=== PATIENT | female | born 1985 ===

== ENCOUNTER 2023-02-03 18:42 | Inpatient (IN) | payer OTHER, SELFPAY ==
[2023-02-03 19:05] VITALS: BP 135/58; PULSE 98; TEMP 35.7
[2023-02-03 19:19] VITALS: BMI 32.7
[2023-02-03] MEDS: Gabapentin 400 MG CAPSULE 800 MG PO (19:39)
[2023-02-03] MEDS: diazePAM 5 MG TABLET PO (19:39)
[2023-02-03] MEDS: QUEtiapine Fumarate 200 MG TABLET PO (19:40)
[2023-02-03] MEDS: Lithium Carbonate 300 MG CAPSULE 600 MG PO (19:40)
[2023-02-03] MEDS: Benztropine Mesylate 1 MG TABLET PO (19:40)
[2023-02-03] MEDS: busPIRone HCl 5 MG TABLET PO (19:40)
--- NOTE | 2023-02-04 01:03 | PC.ADMIT ---
Patient is a 37 year old Yemeni speaking female admitted as a CV admission to , 2022 at 1850 and placed on 15 minute safety checks. Patient had been medically cleared at the [facility] ED, evaluated by a crisis team and deemed in need of IPLOC secondary to SI/HI/AH. She stated she had a plan to get hit by a train. Apparently she had attempted suicide by going onto a train track but her boyfriend intervened. Pat has a history of slitting wrists and overdosing. she is not known to [facility] but does have a history of IPLOC. She also has a history of PTSD. According to the intake, patient reported she has been having SI off and on for the past 3 years and the thoughts have increased to daily. On arrival to patient was noted to have a blank look on her face and was resistive to care. 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 Patient became agitated and started hitting the alvarado and yelling. She did not want to participate in the admission process or sign any legals at this time. She did receive a phone call from her boyfriend. This lyric writer also texted Dr. Ruddy Saba, caisson worker provider, and received an order for a one time dose of Valium 5 mg po x one dose. Dr. Saba also okayed giving patient her night medications early to facilitate patient being able to go to sleep. Patient was able to verbalize that she was not having any SI or HI at the moment and would feel safe on the unit. She did have a tearful converation on the telephone with her father and kept saying I did something really bad . Patient did not elaborate. By 2099 patient was able to eat a sandwich and then go to bed. No further issues noted at this time.
[2023-02-04] MEDS: Nicotine Polacrilex 2 MG GUM 4 MG BUCCAL ×3 (06:53→11:48)
[2023-02-04 08:00] VITALS: BP 134/60; PULSE 90; RESP 20; TEMP 36.2; O2SAT 97
[2023-02-04 08:39] LABS: Estimated Average Glucose 100 mg/dL; Hemoglobin A1c % 5.1 % (<6.0)
[2023-02-04] MEDS: Benztropine Mesylate 1 MG TABLET PO ×2 (08:54→22:14)
[2023-02-04] MEDS: hydrOXYzine HCL 25 MG TABLET PO (08:54)
[2023-02-04] MEDS: Gabapentin 400 MG CAPSULE 800 MG PO ×3 (08:54→22:12)
[2023-02-04] MEDS: busPIRone HCl 5 MG TABLET PO ×3 (08:54→22:13)
[2023-02-04 09:00] LABS: Alanine Aminotransferase 12 U/L (0-31); Albumin Level 4.2 g/dL (3.5-5.0); Alkaline Phosphatase 70 U/L (39-117); Anion Gap 12 (12-20); Aspartate Amino Transferase 19 U/L (5-31); Bilirubin Total 0.2 mg/dL (0.0-1.0); Blood Urea Nitrogen 6 mg/dL (9-16); Calcium 9.5 mg/dL (8.4-10.2); Carbon Dioxide 22 mmol/L (22-29); Chloride 111 mmol/L (96-108); Cholesterol 153 mg/dL (<200); Creatinine Clr Calc Pharmacy 99.3; Estimated Glomerular Filt Rate > 60; Glucose Fasting 104 mg/dL (60-99); HDL Cholesterol 58 mg/dL (>40); LDL Cholesterol Calculated 84 mg/dL (<100); Magnesium 2.1 mg/dL (1.6-2.6); Potassium 4.1 mmol/L (3.3-5.1); Sodium 141 mmol/L (135-145); Total Protein 7.2 g/dL (6.5-8.0); Triglycerides 57 mg/dL (<150)
[2023-02-04 09:08] LABS: Free T4 (Free Thyroxine) 0.86 ng/dL (0.71-1.85); Thyroid Stimulating Hormone 2.22 uIU/mL (0.32-4.0)
[2023-02-04 09:26] LABS: Folate 13.4 ng/mL (> or = 4.0); Vitamin B12 466 pg/mL (200-900)
[2023-02-04] MEDS: Nicotine 21 MG PATCH.TD24 TRANSDERMA (09:35)
--- NOTE | 2023-02-04 10:37 | PM.IMCN ---
History of Present Illness Data of Consult Service Date: 02/04/23 Primary Care Provider: Unknown Physician HPI Reason for consult: Medical clearance A 37 years old lady w PMH of Depression, anxiety, psychosis who is admitted to the psychiatry unit under section 12. No chest pain, palpitations, SOB, nausea, vomiting, diarrhea or urinary symptoms. Hospitalist team asked to evaluate for any medical problems. Review of Systems Review of Systems: No fever, chills or weakness No chest pain, palpitation No shortness of breath or coughing No abdominal pain, nausea or vomiting No urinary symptoms No any rash or wounds PMFSH Medical History Depression Obesity (BMI 30.0-34.9) Social History Household Members: Significant Other Housing: House Do you presently have visiting nurse or other home services: No Unable to assess alcohol history related to: Refusing to respond Patient Tobacco Use Status: Never used Tobacco Smoked in Last 30 Days: No e-Cigarette/Vaping Use: Never Used Second Hand Smoke Exposure: No Use of substances other than those prescribed or required for medical reasons: Refusing to respond Advance Directives: No Advance Directives Information Provided: No Do you have thoughts of harming others: None Do you have a plan to hurt others: No Plan Recently lost weight without trying: No Eating poorly because of decreased appetite: No Nutrition Risks: No Nutritional Risk Patient : No : No Poor oral hygiene: No Meds Allergies Allergy/AdvReac Type Severity Reaction Status Date / Time Penicillins Allergy Unknown Unknown Verified 02/03/23 14:54 ativan Allergy Unknown Unknown Uncoded 02/03/23 14:54 Active Medications: Current Medications Acetaminophen (Acetaminophen 325 Mg Tablet) 650 mg PO Q6H PRN PRN Reason: Headache/Pain Mild Scale (1-3) Al Hydroxide/Mg Hydroxide (Magnesium Hydrox/Alum Hydrox 30 Ml Oral.Susp) 30 ml PO Q6H PRN PRN Reason: Heartburn/Nausea Benztropine Mesylate (Benztropine Mesylate 1 Mg Tablet) 1 mg PO BID [facility] Last Admin: 02/04/23 08:54 Dose: 1 mg Buspirone HCl (Buspirone Hcl 5 Mg Tablet) 5 mg PO TID [facility] Last Admin: 02/04/23 08:54 Dose: 5 mg Gabapentin (Gabapentin 400 Mg Capsule) 800 mg PO TID [facility] Last Admin: 02/04/23 08:54 Dose: 800 mg Hydroxyzine HCl (Hydroxyzine Hcl 25 Mg Tablet) 25 mg PO Q6H PRN PRN Reason: Anxiety Last Admin: 02/04/23 08:54 Dose: 25 mg Hepler Carbonate (Hepler Carbonate 300 Mg Capsule) 600 mg PO BEDTIME [facility] Last Admin: 02/03/23 19:40 Dose: 600 mg Magnesium Hydroxide (Milk Of Magnesia 30 Ml Oral.Susp) 30 ml PO DAILY PRN PRN Reason: Constipation Melatonin (Melatonin 3 Mg Tablet) 3 mg PO BEDTIME PRN PRN Reason: Sleep Nicotine (Nicotine 21 Mg Patch.Td24) 21 mg TRANSDERMA DAILY [facility] Last Admin: 02/04/23 09:35 Dose: 21 mg Nicotine Polacrilex (Nicotine Polacrilex 2 Mg Gum) 4 mg BUCCAL Q2H PRN PRN Reason: Nicotine Cravings Last Admin: 02/04/23 08:57 Dose: 4 mg Quetiapine Fumarate (Quetiapine Fumarate 200 Mg Tablet) 200 mg PO BEDTIME [facility] Last Admin: 02/03/23 19:40 Dose: 200 mg Trazodone HCl (Trazodone Hcl 50 Mg Tablet) 50 mg PO BEDTIME MRX1 PRN PRN Reason: Insomnia Physical Exam Vital Signs and Narrative: Vital Signs: Last Vital Signs Temp 97.2 F 02/04/23 08:00 Pulse 90 02/04/23 08:00 Resp 20 02/04/23 08:00 BP 134/60 02/04/23 08:00 Pulse Ox 97 02/04/23 08:00 O2 Del Method Room Air 02/04/23 08:00 BMI result Body Mass Index 32.7 Const: Other: Constitutional : Awake, interactive, not in distress Neck : Normal inspection, Supple Cardiovascular : RRR, no JVP, no lower extremity edema Respiratory : good bilateral air entry, no crackles, wheezes or rhonchi Gastrointestinal: soft, lax, Normal bowel sounds, Non tender Skin : Warm, Dry Neurological : Alert & oriented x3, No focal deficit , CN 2-12 within normal Results Labs 02/04/23 07:51 Labs: Laboratory Results - last 24 hr 02/04/23 07:51 Anion Gap 12 Estim Creat Clear Calc 99.3 Estimated GFR > 60 Fasting Glucose 104 H Estimat Average Glucose 100 Hemoglobin A1c % 5.1 Calcium 9.5 Magnesium 2.1 Total Bilirubin 0.2 AST 19 ALT 12 Alkaline Phosphatase 70 Total Protein 7.2 Albumin 4.2 Triglycerides 57 Cholesterol 153 LDL Cholesterol, Calc 84 HDL Cholesterol 58 Vitamin B12 466 Folate 13.4 TSH 2.22 Free T4 0.86 Assessment and Plan (1) Depression: Status: Acute Plan A 54 years old lady with PMH of Asthma, osteoporosis, Smoker among others who presents to the hospital complaining of abdominal pain. Depression followed by psychiatry team No contraindications for ECT if needed for treatment Obesity Advised to lose weight Thanks for the consult. will follow as needed.
[2023-02-04] MEDS: risperiDONE 2 MG TABLET PO (11:48)
[2023-02-04] MEDS: diazePAM 5 MG TABLET PO (16:17)
--- NOTE | 2023-02-04 16:26 | P.HPPS_ITS ---
HPI Date of Service: 02/04/23 Chief Complaint: PTSD, Recurrent Major Depression w/ Psychosis Sources of Information: patient interviewed, chart reviewed and crisis/core team assessment reviewed HPI Subjective Notes: Alvarado Warning, Conditional Voluntary and 3 Day Healthcare Proxy: No Guardianship: No Medical Problems Affecting Mental Status: No Narrative: 37 yo female, history of PTSD, Depression with Psychosis, ?Bipolar features, sent in transfer from [facility] reporting SI/HI/Perceptual alterations. Pt fears people are out to get her. SI with plan to get hit by a train with affirmation of going to the train tracks prior to admission but being stopped by her boyfriend. Reports an increase in nightmares, flashbacks. SI has been present for ~3 years however with consistency over the past week. Pt shares that she is frightened and confused about what happened to put her in this place. All I did was go to an AA meeting, which has kept me sober for 6 months, and I end up in the hospital. Pt describes a probable triggering sensory event at this meeting which prompted nightmares, flashbacks and intense SI along with paranoia. We discussed PTSD and triggers. Pt tearful, willing to work with the team, medications and milieu and reports a great deal of fear in not knowing what has occurred. Past Psychiatric History: IP: , approx September 2022 [facility] [phone] Works with [facility] for therapy and medications. Message left for both. SA: Hx of OD, wrist cutting PCP: Dr. 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 Eight siblings. States she was raised with fear, fighting and anger. 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 Supports Sunny-partner [phone] Sister Tonya [phone] Legal: hx of trespassing (looking for a cigarette on someone's porch) Substance History: Sober from alcohol x 6 months, Quit nicotine 20 months ago Trauma History: Affirms Diagnostics Vital Signs (24Hr): Vital Signs - 24 hr 02/03/23 19:05 02/04/23 08:00 Temperature 96.3 F L 97.2 F Pulse Rate 98 90 Respiratory Rate 20 Blood Pressure 135/58 L 134/60 Pulse Oximetry 97 Oxygen Delivery Method Room Air Room Air BMI result Body Mass Index 32.7 Labs 02/04/23 07:51 Labs: Laboratory Results - last 48 hr 02/04/23 07:51 Sodium 141 Potassium 4.1 Chloride 111 H Carbon Dioxide 22 Anion Gap 12 BUN 6 L Creatinine 0.75 Estim Creat Clear Calc 99.3 Estimated GFR > 60 Fasting Glucose 104 H Estimat Average Glucose 100 Hemoglobin A1c % 5.1 Calcium 9.5 Magnesium 2.1 Total Bilirubin 0.2 AST 19 ALT 12 Alkaline Phosphatase 70 Total Protein 7.2 Albumin 4.2 Triglycerides 57 Cholesterol 153 LDL Cholesterol, Calc 84 HDL Cholesterol 58 Vitamin B12 466 Folate 13.4 TSH 2.22 Free T4 0.86 Meds/Allergies Allergies Allergies Allergy/AdvReac Type Severity Reaction Status Date / Time Penicillins Allergy Unknown Unknown Verified 02/03/23 14:54 ativan Allergy Unknown Unknown Uncoded 02/03/23 14:54 Mental Status Exam Mental Status Exam Patient Appearance: Fatigued and Disheveled Patient Orientation: Person, Place, Time and Situation Level of Consciousness: Alert Patient Behavior: Guarded, Talkative, Cooperative, Anxious, Fearful, Fatigued, Distractible, Good Eye Contact and Crying Mood Description: Suspicious, Depressed, Fearful, Anxious, Nervous and Apprehensive Affect Description: Flat Patient Cognition Impaired: No Ability to Follow Directions: Good Speech Pattern: Spontaneous Speech Memory Description: Episodic Impaired Hallucinations: Auditory Delusions: Paranoid Ideation and Present Perceptual Disturbances: Depersonalization and Derealization Thought Process: Rumination Thought Content: positive for Circumstantial, positive for Preoccupation and positive for Suicidal Ideation Depressive Symptoms: Increased Anxiety, Diff. Making Decisions, Thoughts of /Suicide and Low Self Esteem Judgement: Fair Assessment & Plan Assessment & Plan (1) PTSD (post-traumatic stress disorder): Status: Acute Code(s): F43.10 - Post-traumatic stress disorder, unspecified (2) Severe recurrent major depression w/psychotic features, mood-congruent: Status: Acute Code(s): F33.3 - Major depressive disorder, recurrent, severe with psychotic symptoms (3) Severe alcohol use disorder, in sustained remission: Status: Acute Code(s): F10.21 - Alcohol dependence, in remission Plan 37 yo female, history of PTSD, major depression with psychotic features, alcohol use disorder, currently sober for 6 months, presents in transfer from [facility] with SI, plan to get hit by a train. Pt believes she experienced a trigger at an AA meeting with led to a spiral of decompensation and resulting SI. Reports compliance with medications and not really knowing what caused this current episode. Reports lithium has been helpful in the past and has been compliant with lithium and other meds prior to admission. Plan: Collateral contact Diagnostics as needed Add Gillham 300 mg a.m. Continue 600 mg p.m. Valium 5 mg tid prn anxiety Risperdal 2 mg bid prn for grounding Patient educated on: diagnosis, medication risk/benefits and therapeutic strategies Informed Consent: understands and further education needed Reason for continued inpatient stay Substantial Risk for: rapid decompensation Statement Statement: I have reviewed the history and physical and performed a pertinent examination on my patient. No changes have occurred unless specified. If the History and Physical was not performed prior to admission, the Hospitalist's service will be consulted for completing the admission physical. Time Spent With Patient Time: Total time managing care of this patient today ____ minutes.
[2023-02-04] MEDS: Acetaminophen 325 MG TABLET 650 MG PO (18:10)
[2023-02-04 22:00] VITALS: BP 144/68; PULSE 82; TEMP 35.9
[2023-02-04] MEDS: QUEtiapine Fumarate 200 MG TABLET PO (22:13)
[2023-02-04] MEDS: Lithium Carbonate 300 MG CAPSULE 600 MG PO (22:14)
[2023-02-05 09:00] VITALS: BP 150/78; PULSE 104; RESP 16; TEMP 36.1; O2SAT 98
[2023-02-05] MEDS: Benztropine Mesylate 1 MG TABLET PO ×2 (09:04→19:41)
[2023-02-05] MEDS: Gabapentin 400 MG CAPSULE 800 MG PO ×3 (09:04→19:40)
[2023-02-05] MEDS: busPIRone HCl 5 MG TABLET PO ×3 (09:04→19:41)
[2023-02-05] MEDS: Lithium Carbonate 300 MG CAPSULE PO (09:04)
[2023-02-05] MEDS: Nicotine 21 MG PATCH.TD24 TRANSDERMA (09:05)
[2023-02-05] MEDS: Nicotine Polacrilex 2 MG GUM 4 MG BUCCAL ×5 (09:17→18:39)
[2023-02-05] MEDS: Acetaminophen 325 MG TABLET 650 MG PO (12:06)
--- NOTE | 2023-02-05 14:00 | ECG_ITS ---
Test Reason : QTC CHECK Blood Pressure : / mmHG Vent. Rate : 092 BPM Atrial Rate : 092 BPM P-R Int : 160 ms QRS Dur : 090 ms QT Int : 330 ms P-R-T Axes : 034 051 048 degrees QTc Int : 408 ms Normal sinus rhythm Nonspecific T wave abnormality Abnormal ECG No previous ECGs available Referred By: Freya Baez Electronically Signed By:JAY SMALLWOOD MD
--- NOTE | 2023-02-05 16:22 | P.PNPSI_ITS ---
Subjective Subjective Date of Service: 02/05/23 Reason For Visit: PTSD, Recurrent Major Depression w/ Psychosis Subjective Notes: Conditional Voluntary and 3 Day Healthcare Proxy: No Guardianship: No Medical Problems Affecting Mental Status: No Interim History: Reports feeling some improvement. Asks that we review a timeline regarding transfer from [place]. Trying to put pieces together. Reviewed information from [facility], addressed questions and attempted to clarify nichols areas for pt. Voice mails exchanged with Tonya Ely, pts sister [phone] who reports pt had been doing well for some time prior to this incident. She has attempted to re-assure pt, encouraged her to work with meds and stay for as long as she needs to. Tonya is aware of the three day notice with no concerns about pt returning to her area as she has several termite helper supports. Tonya does believe that pt did stop meds prior to admission, yet is unclear why. Medication Compliance: Yes Side effects from medications: No Attending Groups: Intermittent Review of Systems Acute medical concerns: No Medical Review of Systems: unchanged Mental Status Exam Mental Status Exam Patient Appearance: Appropriate Patient Orientation: Person, Place, Time and Situation Level of Consciousness: Alert Patient Behavior: Talkative, Cooperative, Anxious, Distractible and Good Eye Contact Mood Description: Suspicious, Depressed and Anxious Affect Description: Anxious Patient Cognition Impaired: No Ability to Follow Directions: Good Speech Pattern: Spontaneous Speech Memory Description: Episodic Impaired Hallucinations: Auditory Perceptual Disturbances: Depersonalization and Derealization Thought Process: Rumination Thought Content: positive for Circumstantial and positive for Suicidal Ideation (denies) Depressive Symptoms: Increased Anxiety, Diff. Making Decisions, Thoughts of /Suicide (denies) and Low Self Esteem Judgement: Good Diagnostics Vital Signs (24Hr): Vital Signs - 24 hr 02/04/23 22:00 02/05/23 09:00 Temperature 96.6 F L 97.0 F Pulse Rate 82 104 H Respiratory Rate 16 Blood Pressure 144/68 H 150/78 H Pulse Oximetry 98 Oxygen Delivery Method Room Air BMI result Body Mass Index 32.7 Labs 02/04/23 07:51 Labs: Laboratory Results - last 48 hr 02/04/23 07:51 Sodium 141 Potassium 4.1 Chloride 111 H Carbon Dioxide 22 Anion Gap 12 BUN 6 L Creatinine 0.75 Estim Creat Clear Calc 99.3 Estimated GFR > 60 Fasting Glucose 104 H Estimat Average Glucose 100 Hemoglobin A1c % 5.1 Calcium 9.5 Magnesium 2.1 Total Bilirubin 0.2 AST 19 ALT 12 Alkaline Phosphatase 70 Total Protein 7.2 Albumin 4.2 Triglycerides 57 Cholesterol 153 LDL Cholesterol, Calc 84 HDL Cholesterol 58 Vitamin B12 466 Folate 13.4 TSH 2.22 Free T4 0.86 Medications Medications Current Medications Acetaminophen (Acetaminophen 325 Mg Tablet) 650 mg PO Q6H PRN PRN Reason: Headache/Pain Mild Scale (1-3) Last Admin: 02/05/23 12:06 Dose: 650 mg Al Hydroxide/Mg Hydroxide (Magnesium Hydrox/Alum Hydrox 30 Ml Oral.Susp) 30 ml PO Q6H PRN PRN Reason: Heartburn/Nausea Benztropine Mesylate (Benztropine Mesylate 1 Mg Tablet) 1 mg PO BID [facility] Last Admin: 02/05/23 09:04 Dose: 1 mg Buspirone HCl (Buspirone Hcl 5 Mg Tablet) 5 mg PO TID [facility] Last Admin: 02/05/23 14:06 Dose: 5 mg Diazepam (Diazepam 5 Mg Tablet) 5 mg PO TID PRN PRN Reason: anxiety, agitation Last Admin: 02/04/23 16:17 Dose: 5 mg Gabapentin (Gabapentin 400 Mg Capsule) 800 mg PO TID [facility] Last Admin: 02/05/23 14:06 Dose: 800 mg Hydroxyzine HCl (Hydroxyzine Hcl 25 Mg Tablet) 25 mg PO Q6H PRN PRN Reason: Anxiety Last Admin: 02/04/23 08:54 Dose: 25 mg Langley Carbonate (Langley Carbonate 300 Mg Capsule) 600 mg PO BEDTIME [facility] Last Admin: 02/04/23 22:14 Dose: 600 mg Langley Carbonate (Langley Carbonate 300 Mg Capsule) 300 mg PO DAILY [facility] Last Admin: 02/05/23 09:04 Dose: 300 mg Magnesium Hydroxide (Milk Of Magnesia 30 Ml Oral.Susp) 30 ml PO DAILY PRN PRN Reason: Constipation Melatonin (Melatonin 3 Mg Tablet) 10 mg PO BEDTIME PRN PRN Reason: Sleep Nicotine (Nicotine 21 Mg Patch.Td24) 21 mg TRANSDERMA DAILY [facility] Last Admin: 02/05/23 09:05 Dose: 21 mg Nicotine Polacrilex (Nicotine Polacrilex 2 Mg Gum) 4 mg BUCCAL Q2H PRN PRN Reason: Nicotine Cravings Last Admin: 02/05/23 16:01 Dose: 4 mg Quetiapine Fumarate (Quetiapine Fumarate 50 Mg Tablet) 250 mg PO BEDTIME [facility] Risperidone (Risperidone 1 Mg Tablet) 1 mg PO BID PRN PRN Reason: ptsd sx, dissociation Trazodone HCl (Trazodone Hcl 50 Mg Tablet) 50 mg PO BEDTIME MRX1 PRN PRN Reason: Insomnia Allergies Allergies Allergy/AdvReac Type Severity Reaction Status Date / Time Penicillins Allergy Unknown Unknown Verified 02/03/23 14:54 ativan Allergy Unknown Unknown Uncoded 02/03/23 14:54 Assessment & Plan Assessment & Plan (1) PTSD (post-traumatic stress disorder): Status: Acute Code(s): F43.10 - Post-traumatic stress disorder, unspecified (2) Severe recurrent major depression w/psychotic features, mood-congruent: Status: Acute Code(s): F33.3 - Major depressive disorder, recurrent, severe with psychotic symptoms (3) Severe alcohol use disorder, in sustained remission: Status: Acute Code(s): F10.21 - Alcohol dependence, in remission Plan 37 yo female, history of PTSD, major depression with psychotic features, alcohol use disorder, currently sober for 6 months, presents in transfer from [facility] with SI, plan to get hit by a train. Pt believes she experienced a trigger at an AA meeting with led to a spiral of decompensation and resulting SI. Reports compliance with medications and not really knowing what caused this current episode. Reports lithium has been helpful in the past and has been compliant with lithium and other meds prior to admission. Plan: Collateral contact Diagnostics as needed Add Langley 300 mg a.m. Continue 600 mg p.m. Valium 5 mg tid prn anxiety Risperdal 2 mg bid prn for grounding 02/05/23 Establish alliance Encourage med compliance Collateral contact TDN in effect Informed Consent: understands Reason for continued inpatient stay Substantial Risk for: harm to self and rapid decompensation Time Spent With Patient Time: Total time managing care of this patient today ____ minutes.
[2023-02-05 17:13] VITALS: BP 130/82; PULSE 90; RESP 16; TEMP 36.8; O2SAT 98
[2023-02-05] MEDS: Lithium Carbonate 300 MG CAPSULE 600 MG PO (19:41)
[2023-02-05] MEDS: QUEtiapine Fumarate 50 MG TABLET 250 MG PO (19:41)
[2023-02-05] MEDS: Melatonin 3 MG TABLET 10 MG PO (19:48)
[2023-02-06] MEDS: Nicotine Polacrilex 2 MG GUM 4 MG BUCCAL ×5 (06:18→18:57)
[2023-02-06] MEDS: Lithium Carbonate 300 MG CAPSULE PO (08:31)
[2023-02-06] MEDS: Gabapentin 400 MG CAPSULE 800 MG PO ×3 (08:32→19:41)
[2023-02-06] MEDS: busPIRone HCl 5 MG TABLET PO ×3 (08:32→19:41)
[2023-02-06] MEDS: Benztropine Mesylate 1 MG TABLET PO ×2 (08:32→19:42)
[2023-02-06] MEDS: Nicotine 21 MG PATCH.TD24 TRANSDERMA (08:40)
[2023-02-06 09:24] VITALS: BP 122/61; PULSE 102; RESP 16; TEMP 36.2; O2SAT 97
[2023-02-06] MEDS: risperiDONE 1 MG TABLET PO (13:27)
[2023-02-06 14:58] VITALS: BP 123/64; PULSE 102
--- NOTE | 2023-02-06 16:15 | P.PNPSI_ITS ---
Subjective Subjective Date of Service: 02/06/23 Reason For Visit: PTSD, Recurrent Major Depression w/ Psychosis Subjective Notes: Conditional Voluntary and 3 Day Healthcare Proxy: No Guardianship: No Medical Problems Affecting Mental Status: No Interim History[phone] covering for pt.s team. They will call with fax numbers for information post discharge. Pt continues to report she is safe, feeling ready to return to her team in [place]. She describes her crisis and subsequent hospitalization as surreal , citing our review of events yesterday was useful with grounding, however there are some questions she has for her team regarding their work with her prior to the crisis. Denies SI, HI, perceptual alterations. Visable in milieu. 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 Medication Compliance: Yes Side effects from medications: No Attending Groups: Intermittent Review of Systems Acute medical concerns: No Medical Review of Systems: unchanged Mental Status Exam Mental Status Exam Patient Appearance: Appropriate Patient Orientation: Person, Place, Time and Situation Level of Consciousness: Alert Patient Behavior: Talkative, Cooperative and Good Eye Contact Mood Description: Anxious Affect Description: Anxious Patient Cognition Impaired: No Ability to Follow Directions: Good Speech Pattern: Spontaneous Speech Memory Description: Episodic Impaired Hallucinations: None (denies today) Perceptual Disturbances: Depersonalization and Derealization Thought Process: Rumination Thought Content: positive for Circumstantial and positive for Suicidal Ideation (denies) Depressive Symptoms: Increased Anxiety, Diff. Making Decisions, Thoughts of /Suicide (denies) and Low Self Esteem Judgement: Good Diagnostics Vital Signs (24Hr): Vital Signs - 24 hr 02/05/23 17:13 02/06/23 09:24 02/06/23 14:58 Temperature 98.2 F 97.2 F Pulse Rate 90 102 H 102 H Respiratory Rate 16 16 Blood Pressure 130/82 122/61 123/64 Pulse Oximetry 98 97 Oxygen Delivery Method Room Air Room Air BMI result Body Mass Index 32.7 Labs 02/04/23 07:51 Medications Medications Current Medications Acetaminophen (Acetaminophen 325 Mg Tablet) 650 mg PO Q6H PRN PRN Reason: Headache/Pain Mild Scale (1-3) Last Admin: 02/05/23 12:06 Dose: 650 mg Al Hydroxide/Mg Hydroxide (Magnesium Hydrox/Alum Hydrox 30 Ml Oral.Susp) 30 ml PO Q6H PRN PRN Reason: Heartburn/Nausea Benztropine Mesylate (Benztropine Mesylate 1 Mg Tablet) 1 mg PO BID [facility] Last Admin: 02/06/23 08:32 Dose: 1 mg Buspirone HCl (Buspirone Hcl 5 Mg Tablet) 5 mg PO TID [facility] Last Admin: 02/06/23 14:33 Dose: 5 mg Diazepam (Diazepam 5 Mg Tablet) 5 mg PO TID PRN PRN Reason: anxiety, agitation Last Admin: 02/04/23 16:17 Dose: 5 mg Gabapentin (Gabapentin 400 Mg Capsule) 800 mg PO TID [facility] Last Admin: 02/06/23 14:33 Dose: 800 mg Hydroxyzine HCl (Hydroxyzine Hcl 25 Mg Tablet) 25 mg PO Q6H PRN PRN Reason: Anxiety Last Admin: 02/04/23 08:54 Dose: 25 mg Flintstone Carbonate (Flintstone Carbonate 300 Mg Capsule) 600 mg PO BEDTIME [facility] Last Admin: 02/05/23 19:41 Dose: 600 mg Flintstone Carbonate (Flintstone Carbonate 300 Mg Capsule) 300 mg PO DAILY [facility] Last Admin: 02/06/23 08:31 Dose: 300 mg Magnesium Hydroxide (Milk Of Magnesia 30 Ml Oral.Susp) 30 ml PO DAILY PRN PRN Reason: Constipation Melatonin (Melatonin 3 Mg Tablet) 10 mg PO BEDTIME PRN PRN Reason: Sleep Last Admin: 02/05/23 19:48 Dose: 10 mg Nicotine (Nicotine 21 Mg Patch.Td24) 21 mg TRANSDERMA DAILY [facility] Last Admin: 02/06/23 08:40 Dose: 21 mg Nicotine Polacrilex (Nicotine Polacrilex 2 Mg Gum) 4 mg BUCCAL Q2H PRN PRN Reason: Nicotine Cravings Last Admin: 02/06/23 13:42 Dose: 4 mg Quetiapine Fumarate (Quetiapine Fumarate 50 Mg Tablet) 250 mg PO BEDTIME [facility] Last Admin: 02/05/23 19:41 Dose: 250 mg Risperidone (Risperidone 1 Mg Tablet) 1 mg PO BID PRN PRN Reason: ptsd sx, dissociation Last Admin: 02/06/23 13:27 Dose: 1 mg Trazodone HCl (Trazodone Hcl 50 Mg Tablet) 50 mg PO BEDTIME MRX1 PRN PRN Reason: Insomnia Allergies Allergies Allergy/AdvReac Type Severity Reaction Status Date / Time Penicillins Allergy Unknown Unknown Verified 02/03/23 14:54 ativan Allergy Unknown Unknown Uncoded 02/03/23 14:54 Assessment & Plan Assessment & Plan (1) PTSD (post-traumatic stress disorder): Status: Acute Code(s): F43.10 - Post-traumatic stress disorder, unspecified (2) Severe recurrent major depression w/psychotic features, mood-congruent: Status: Acute Code(s): F33.3 - Major depressive disorder, recurrent, severe with psychotic symptoms (3) Severe alcohol use disorder, in sustained remission: Status: Acute Code(s): F10.21 - Alcohol dependence, in remission Plan 37 yo female, history of PTSD, major depression with psychotic features, alcohol use disorder, currently sober for 6 months, presents in transfer from [facility] with SI, plan to get hit by a train. Pt believes she experienced a trigger at an AA meeting with led to a spiral of decompensation and resulting SI. Reports compliance with medications and not really knowing what caused this current episode. Reports lithium has been helpful in the past and has been compliant with lithium and other meds prior to admission. Plan: Collateral contact Diagnostics as needed Add Flintstone 300 mg a.m. Continue 600 mg p.m. Valium 5 mg tid prn anxiety Risperdal 2 mg bid prn for grounding 02/06/23 Three day notice to 02/07/23. Discharge planned. Patient educated on: medication risk/benefits and therapeutic strategies Informed Consent: understands Reason for continued inpatient stay Substantial Risk for: rapid decompensation Time Spent With Patient Time: Total time managing care of this patient today ____ minutes.
[2023-02-06 18:00] VITALS: BP 122/62; PULSE 98; TEMP 36.3; O2SAT 97
[2023-02-06] MEDS: QUEtiapine Fumarate 50 MG TABLET 250 MG PO (19:41)
[2023-02-06] MEDS: Lithium Carbonate 300 MG CAPSULE 600 MG PO (19:41)
[2023-02-07] MEDS: Nicotine Polacrilex 2 MG GUM 4 MG BUCCAL (06:07)
[2023-02-07 07:50] VITALS: BP 128/81; PULSE 96; RESP 18; TEMP 36; O2SAT 98
[2023-02-07] MEDS: Gabapentin 400 MG CAPSULE 800 MG PO (08:44)
[2023-02-07] MEDS: Benztropine Mesylate 1 MG TABLET PO (08:45)
[2023-02-07] MEDS: busPIRone HCl 5 MG TABLET PO (08:45)
[2023-02-07] MEDS: Lithium Carbonate 300 MG CAPSULE PO (08:45)
--- NOTE | 2023-02-07 14:49 | P.DS_ITS ---
DS: Providers Provider Date of Service: 02/07/23 Date of admission: 02/03/23 18:42 Date of discharge: 02/07/23 Primary care physician: Unknown Physician Admitting clinician: Freya Baez Attending physician on admission: Jose Huertas Consults: 02/04/23 03:01 Consult to Hospitalist Routine Comment: Consulting Provider: Hospitalist Reason For Exam: Hospital transfer Attending physician on discharge: Jose Huertas Discharging clinician: Freya Baez DS: Diagnosis Discharge Diagnosis (1) PTSD (post-traumatic stress disorder): Status: Acute (2) Severe recurrent major depression w/psychotic features, mood-congruent: Status: Acute (3) Severe alcohol use disorder, in sustained remission: Status: Acute DS: Medications Discharge Medications Home Medications: Previous Rx's Medication Instructions Recorded benztropine 1 mg tablet 1 mg PO BID #14 tabs 02/06/23 buspirone 5 mg tablet 5 mg PO TID #21 tabs 02/06/23 gabapentin 800 mg tablet 800 mg PO TID #21 tabs 02/06/23 lithium carbonate 300 mg capsule 300 mg PO DAILY #7 caps 02/06/23 lithium carbonate 600 mg capsule 600 mg PO BEDTIME #7 caps 02/06/23 quetiapine 200 mg tablet (Seroquel) 200 mg PO BEDTIME #7 tabs 02/06/23 quetiapine 50 mg tablet (Seroquel) 50 mg PO BEDTIME #7 tabs 02/06/23 risperidone 1 mg tablet 1 mg PO BID PRN ptsd sx, 02/06/23 dissociation #14 tabs Mental Status Exam Mental Status Exam Patient Appearance: Appropriate Patient Orientation: Person, Place, Time and Situation Level of Consciousness: Alert Patient Behavior: Talkative, Cooperative and Good Eye Contact Mood Description: Anxious Affect Description: Anxious Patient Cognition Impaired: No Ability to Follow Directions: Good Speech Pattern: Spontaneous Speech Memory Description: Episodic Impaired Hallucinations: None (denies today) Perceptual Disturbances: Depersonalization and Derealization Thought Process: Rumination Thought Content: positive for Circumstantial and positive for Suicidal Ideation (denies) Depressive Symptoms: Increased Anxiety, Diff. Making Decisions, Thoughts of /Suicide (denies) and Low Self Esteem Judgement: Good Data Data Completed and Pending Completed studies during hospitalization [Text1]: 02/04/23 07:51 Sodium 141 Potassium 4.1 Chloride 111 H Carbon Dioxide 22 Anion Gap 12 BUN 6 L Creatinine 0.75 Estim Creat Clear Calc 99.3 Estimated GFR > 60 Fasting Glucose 104 H Estimat Average Glucose 100 Hemoglobin A1c % 5.1 Calcium 9.5 Magnesium 2.1 Total Bilirubin 0.2 AST 19 ALT 12 Alkaline Phosphatase 70 Total Protein 7.2 Albumin 4.2 Triglycerides 57 Cholesterol 153 LDL Cholesterol, Calc 84 HDL Cholesterol 58 Vitamin B12 466 Folate 13.4 TSH 2.22 Free T4 0.86 DS: Summary Hospital Course Hospital Course: Admission to adult psychiatry in transfer from [facility] for exacerbation of PTSD, Recurrent Major Depression with Psychosis and Alcohol Use Disorder in Sustained Remission. Pt presented with SI,HI, and Perceptual Alterations. It appears she attended an AA meeting in her area and was triggered, precipitating symptoms. Pt's medications were evaluated and initiated with her. She was participatory in milieu and with the team, attempting to understand the possible triggering event and events she did not recall prior to admission due to dissociation. She plans to return to her [facility] and to her [facility], [place], for ongoing treatment with her team. She did leave on a three day notice of intention. Time spent discussing smoking cessation with patient: 3 to 10 minutes Status at Discharge Functional status at discharge: independent ambulation Overall status at discharge: patient is progressing back to baseline Time Spent with Patient Time attestation: Total time managing care of this patient today ____ minutes. Time spent: Greater than 30 minutes Discharge Plan Discharge Anticipated Discharge Date/Time: 02/07/23 11:00 Patient Disposition: Alf Discharge Diagnosis: PTSD Severe Recurrent Major Depression, with Psychotic Features Referrals: [facility] [Other] - 02/12/23 3:00 pm [facility] [Other] - 1 Week [facility] [Other] - 1 Week (If you have any questions or concerns, please utilize their walk in service or give them a call at the above number. ) Discharge Medications: New buspirone 5 mg Tablet 5 mg PO TID Qty: 21 1RF lithium carbonate 300 mg Capsule 300 mg PO DAILY Qty: 7 0RF benztropine 1 mg Tablet 1 mg PO BID Qty: 14 0RF risperidone 1 mg Tablet 1 mg PO BID PRN (Reason: ptsd sx, dissociation) Qty: 14 0RF lithium carbonate 600 mg capsule 600 mg PO BEDTIME Qty: 7 0RF quetiapine [Seroquel] 200 mg tablet 200 mg PO BEDTIME Qty: 7 0RF quetiapine [Seroquel] 50 mg tablet 50 mg PO BEDTIME Qty: 7 0RF gabapentin 800 mg tablet 800 mg PO TID Qty: 21 0RF Discharge Orders: Discharge Order (Routine); Ordered 02/07/23 Ordered By: Freya Baez Stand Alone Forms: Patient Portal Discharge page, Community Support Care Plan Goals: Mood and Behavioral Stabilization Health Concerns: Mood and Behavioral Stabilization Plan of Treatment: Attend scheduled appointments Take medications as directed Assessment: Discharge via three day notice Discharge Date/Time: 02/07/23 10:25
== END 2023-02-07 10:25 | disposition home or self-care (01) | DRG 751 ==
PROVIDERS: Admitting Provider Psychiatry & Neurology Psychiatry; Visit Provider Clinical Nurse Specialist Psychiatric/Mental Health, Adult
DX: F33.3 Major depressive disorder, recurrent, severe with psychotic symptoms (principal); R45.851 Suicidal ideations; E66.9 Obesity, unspecified; F43.10 Post-traumatic stress disorder, unspecified; F11.21 Opioid dependence, in remission; Z68.32 Body mass index [BMI] 32.0-32.9, adult; Z71.3 Dietary counseling and surveillance; Z79.899 Other long term (current) drug therapy
CPT/HCPCS: 36415; 80053; 80061; 82607; 82746; 83036; 83735; 84439; 84443; 93005

== ENCOUNTER → 2023-02-03 18:42 | Outpatient (BNV) | payer OTHER, SELFPAY | PROVIDERS: Admitting Provider Psychiatry & Neurology Psychiatry; Visit Provider Clinical Nurse Specialist Psychiatric/Mental Health, Adult | DX: F33.3 Major depressive disorder, recurrent, severe with psychotic symptoms (principal); F10.21 Alcohol dependence, in remission; F43.11 Post-traumatic stress disorder, acute | CPT/HCPCS: 99231; 99232 ==

== ENCOUNTER → 2023-02-03 18:42 | Outpatient (BNV) | payer MEDICAID, SELFPAY | PROVIDERS: Admitting Provider Psychiatry & Neurology Psychiatry; Visit Provider Student in an Organized Health Care Education/Training Program | DX: Z02.2 Encounter for examination for admission to residential institution (principal) | CPT/HCPCS: 99429 ==